=== PATIENT | male | born 1980 | race Caucasian/White ===

== ENCOUNTER 2018-02-09 07:38 | Emergency (ER) | payer OTHER ==
[2018-02-09] MEDS: KETOROLAC 30 MG INJ IM (08:17)
== END 2018-02-09 10:18 | disposition home or self-care (01) ==
LOC: FTE 07:38
DX: S39.92XA Unspecified injury of lower back, initial encounter (principal); S62.654B Nondisplaced fracture of middle phalanx of right ring finger, initial encounter for open fracture; W18.39XA Other fall on same level, initial encounter; Y92.000 Kitchen of unspecified non-institutional (private) residence as the place of occurrence of the external cause; Z87.891 Personal history of nicotine dependence
CPT/HCPCS: 29125; 72100; 73110-RT; 73130-RT; 96372; 99284-25